=== PATIENT | female | born 1990 | race Caucasian/White ===

== ENCOUNTER 2018-01-31 01:33 | Emergency (ER) | payer OTHER ==
[2018-01-31 01:55] VITALS: BP 136/85; PULSE 75; TEMP 98.7; BMI 26.6
--- NOTE | 2018-01-31 01:57 | PDOC ---
History of Present Illness <Kinza Rudolph - Last Filed: 01/31/18 04:20> - General History Source: Patient - History of Present Illness Initial Comments: 01/31/18 02:44 Patient is a 27 year old female with a PMH of Asthma who presents c/o vaginal spotting. Patient states she has had minimal vaginal spotting over the last 2 days with some associated abdominal cramping and aching pain in her breasts. Patient states she took home tests x3 yesterday that were positive. Patient denies any fevers/chills but endorses multiple episodes of NBNB emesis. Patient has not been evaluated by an [facility] during this and notes her prior was terminated (elective AB). Patient denies any chest pain, shortness of breath, dysuria/hematuria, recent travel or sick contacts. <Briana Fernando - Last Filed: 01/31/18 04:37> - General Chief Complaint: Pain Stated Complaint: ABDOMINAL PAIN Time Seen by Provider: 01/31/18 01:54 Past History <Kinza Rudolph - Last Filed: 01/31/18 04:20> - Suicide/Smoking/Psychosocial Hx Smoking History: Smoker current status UNK Have you smoked in the past 12 months: No Information on smoking cessation initiated: No Hx Alcohol Use: No Drug/Substance Use Hx: No <Briana Fernando - Last Filed: 01/31/18 04:37> - Past Medical History Allergies/Adverse Reactions: Allergies Allergy/AdvReac Type Severity Reaction Status Date / Time No Known Allergies Allergy Verified 01/31/18 01:55 Home Medications: Ambulatory Orders Albuterol Sulfate Inhaler - [Ventolin Hfa Inhaler -] 1 puff IH PRN 01/31/18 Review of Systems - Review of Systems Constitutional: No: Chills, Fever Respiratory: No: Cough, Shortness of Breath Cardiac (ROS): No: Chest Pain, Lightheadedness, Palpitations, Syncope ABD/GI: Yes: Vomiting, Abdominal cramping. No: Constipated, Diarrhea : No: Burning, Dysuria <Briana Fernando - Last Filed: 01/31/18 04:37> *Physical Exam - Vital Signs Last Vital Signs Temp Pulse Resp BP Pulse Ox 98.7 F 75 18 136/85 100 01/31/18 01:53 01/31/18 01:53 01/31/18 01:53 01/31/18 01:53 01/31/18 01:53 <Kinza Rudolph - Last Filed: 01/31/18 04:20> - Vital Signs Last Vital Signs Temp Pulse Resp BP Pulse Ox 98.7 F 75 18 136/85 100 01/31/18 01:53 01/31/18 01:53 01/31/18 01:53 01/31/18 01:53 01/31/18 01:53 - Physical Exam General Appearance: Yes: Nourished, Appropriately Dressed Neck: positive: Trachea midline, Supple Respiratory/Chest: positive: Lungs Clear Cardiovascular: positive: S1, S2. negative: Edema, JVD Female Pelvic Exam: positive: cervical os closed, discharge Gastrointestinal/Abdominal: positive: Normal Bowel Sounds, Soft Musculoskeletal: negative: CVA Tenderness (R), CVA Tenderness (L) Extremity: positive: Normal Capillary Refill, Normal Inspection Integumentary: positive: Normal Color, Dry, Warm <Briana Fernando - Last Filed: 01/31/18 04:37> ED Treatment Course - LABORATORY CBC & Chemistry Diagram: 01/31/18 02:29 01/31/18 02:29 - ADDITIONAL ORDERS Additional order review: Laboratory Results 01/31/18 01/31/18 01/31/18 02:29 02:29 02:29 Sodium 139 Potassium 3.9 Chloride 108 H Carbon Dioxide 22 Anion Gap 9 BUN 14 Creatinine 0.7 Creat Clearance w eGFR > 60 Random Glucose 97 Calcium 8.3 L Total Bilirubin 0.2 AST 17 ALT 16 Alkaline Phosphatase 64 Total Protein 7.8 Albumin 3.9 Beta HCG, Quant 89.0 Urine Color Yellow Urine Appearance Slcloudy Urine pH 5.0 [address] [facility] 1.039 H Urine Protein 1+ H Urine Glucose (UA) Negative Urine Ketones Negative Urine Blood Negative Urine Nitrite Negative Urine Bilirubin Negative Urine Urobilinogen 2.0 H Ur Leukocyte Esterase Negative Urine WBC (Auto) 1 Urine RBC (Auto) 5 Ur Epithelial Cells Rare Urine Bacteria Rare Urine Mucus Moderate Blood Type A POSITIVE Antibody Screen Negative 01/31/18 02:29 RBC 4.26 MCV 91.4 MCHC 33.7 RDW 13.8 MPV 8.9 Neutrophils % 69.2 Lymphocytes % 21.3 Monocytes % 8.1 Eosinophils % 1.1 Basophils % 0.3 <Kinza Rudolph - Last Filed: 01/31/18 04:20> - LABORATORY CBC & Chemistry Diagram: 01/31/18 02:29 01/31/18 02:29 <Briana Fernando - Last Filed: 01/31/18 04:37> Medical Decision Making - Medical Decision Making 01/31/18 02:47 27 year old female presents s/p home test and SiSx of including abdominal cramping and B/L breast tenderness/fullness. Unremarkable abdominal exam. Pelvic exam shows closed cervical os with physiologic discharge. Will obtain TVUS, CBC, B-HCG, T/S and UA. Reassess. 01/31/18 04:18 B-HCG 89, c/w 0-1 week . TVUS pending. CBC shows no anemia. Urine clean. 01/31/18 04:24 U/S equivocal for ectopic vs. early . Will page [facility]. 01/31/18 04:26 Case d/w Dr. Alfaro ([facility]) patient should have repeat B-HCG in 48 hours. Will discharge patient home with return precautions, referral to [facility] as well as referral to primary care. 01/31/18 04:34 Patient counseled extensively on importance of [facility] evaluation in 48 hours for repeat B-HCG. I discussed the physical exam findings, ancillary test results and final diagnoses with the patient. I answered all of the patient's questions. The patient was satisfied with the care received and felt comfortable with the discharge plan and treatment plan. The patient will return to the Emergency Department with any new, persistent or worsening symptoms. <AbdullahiBriana - Last Filed: 01/31/18 04:37> *DC/Admit/Observation/Transfer - Discharge Dispostion Admit: No <RudolphKinza - Last Filed: 01/31/18 04:20> <Briana Fernando - Last Filed: 01/31/18 04:37> Diagnosis at time of Disposition: Early stage of , Pelvic pain - Discharge Dispostion Disposition: HOME Condition at time of disposition: Stable - Referrals Referrals: ON STAFF,NOT [Primary Care Provider] - Tay Alfaro MD [Staff Physician] - Javier Whipple MD [Staff Physician] - - Patient Instructions Printed Discharge Instructions: DI for Ectopic Additional Instructions: You must follow up with Dr. Alfaro, a doctor, in 48 hours to determine if any possible is safe to carry to term. It is very important that you see an sdet in 48 hours for a full evaluation as a could be outside your uterus and this is a medical emergency. We have also provided a referral to Dr. Sarabjit Herrera to establish primary care. Return to the Emergency Department for any new/worsening/concerning symptoms. - Post Discharge Activity
[2018-01-31 02:39] LABS: BASO % 0.3 % (0-2.0); EOS % 1.1 % (0-4.5); HEMOGLOBIN 13.2 GM/dL (10.7-15.3); LYMPH % 21.3 % (8-40); MCH 30.8 pg (25.7-33.7); MCHC 33.7 g/dl (32.0-36.0); MEAN CELL VOLUME 91.4 fl (80-96); MEAN PLT VOLUME 8.9 fl (7.5-11.1); MONO % 8.1 % (3.8-10.2); NEUT % 69.2 % (42.8-82.8); PLATELET COUNT 234 K/MM3 (134-434); RBC 4.26 M/mm3 (3.60-5.2); RDW 13.8 % (11.6-15.6); URINE APPEARANCE SLCLOUDY; URINE BILIRUBIN NEGATIVE (<2.0 mg/dL); URINE BLOOD NEGATIVE (NEGATIVE); URINE COLOR YELLOW; URINE GLUCOSE (UA) NEGATIVE (NEGATIVE); URINE KETONE NEGATIVE (NEGATIVE); URINE LEUK ESTERASE NEGATIVE (NEGATIVE); URINE NITRITE NEGATIVE (NEGATIVE); WHITE BLOOD COUNT 12.1 K/mm3 (4.0-10.0)
[2018-01-31 02:42] LABS: URINE PROTEIN 1+ (NEGATIVE)
[2018-01-31 02:43] LABS: EPI CELLS RARE /HPF (FEW); URINE BACTERIA RARE /hpf (NONE SEEN); URINE MUCUS MODERATE
[2018-01-31 03:05] LABS: ALBUMIN 3.9 g/dl (3.4-5.0); ANION GAP 9 (8-16); BILIRUBIN,TOTAL 0.2 mg/dL (0.2-1.0); BLOOD UREA NITROGEN 14 mg/dL (7-18); CALCIUM 8.3 mg/dL (8.5-10.1); CHLORIDE 108 mmol/L (98-107); CO2 22 mmol/L (21-32); CREATININE 0.7 mg/dL (0.55-1.02); GLUCOSE,RANDOM 97 mg/dL (74-106); POTASSIUM 3.9 mmol/L (3.5-5.1); SGOT/AST 17 U/L (15-37); SGPT/ALT 16 U/L (12-78); SODIUM 139 mmol/L (136-145); TOT PROT 7.8 g/dl (6.4-8.2)
[2018-01-31 03:07] LABS: ALK PHOS 64 U/L (45-117)
--- NOTE | 2018-01-31 04:14 | PDOC ---
Attending Attestation - Resident Resident Name: Briana Fernando - ED Attending Attestation I have performed the following: I have examined & evaluated the patient, The case was reviewed & discussed with the resident, I agree w/resident's findings & plan - HPI HPI: 01/31/18 04:47 Pt comes with lower abd pain in . Home preg test positive. Pt has no vag bleeding. Pt has A+ blood. - Physicial Exam PE: 01/31/18 04:50 Agree with resident exam - Medical Decision Making 01/31/18 04:50 BHCG 89; early preg vs ectopic. Pt will follow with [facility] in 2 days for repeat hcg. We spoke to [facility] Dominic, and he agrees with this plan. 01/31/18 04:52 Patient Name: LUMA CHAUDHARY THIS IS A PRELIMINARY REPORT FROM [facility] DATE OF SERVICE: 2018-01-31 01:48:27 IMAGES: 95 EXAM: Ultrasound , first trimester and pelvic duplex HISTORY: Rule out ectopic . COMPARISON: None. FINDINGS: Ultrasound :Uterus is anteverted and measures 8.0centimeters in length. The endometrium is 11millimeters in thickness and there is no IUP which could indicate early normal , ectopic or miscarriage. The right ovary measures 5.2centimeters in length, contains a 3.7 cm cyst, possibly a corpus luteum and demonstrates normal flow. Left ovary measures 3.3centimeters in length appears normal demonstrates normal flow. There is minimal significant free fluid. Pelvic duplex: There is normal arterial and venous flow in both ovaries. IMPRESSION: No IUP which could indicate early normal , miscarriage or ectopic . 3.7 cm right ovarian cyst, possible corpus luteum with minimal free fluid and no torsion. Recommend followup sonography and correlation with hCG levels. THIS DOCUMENT HAS BEEN ELECTRONICALLY SIGNED
== END 2018-01-31 05:00 | disposition home or self-care (01) ==
LOC: JER 01:33 → SUPCPDRO 01:33 → JER 05:00
DX: O26.891 Other specified pregnancy related conditions, first trimester (principal); Z3A.00 Weeks of gestation of pregnancy not specified; R10.2 Pelvic and perineal pain
CPT/HCPCS: 36415; 76817-TC; 80053; 81003; 81015; 84702; 85025; 86850; 86900; 86901; 99281-25

== ENCOUNTER 2019-09-08 18:47 | Emergency (ER) | payer OTHER ==
[2019-09-08 18:54] VITALS: BP 135/90; PULSE 88; TEMP 98; BMI 30.9
[2019-09-08] MEDS ORDERED: IBUPROFEN 400 MG TABLET (FP) PO ONE ×2 (20:21→20:32)
--- NOTE | 2019-09-08 21:26 | PDOC ---
History of Present Illness - General Chief Complaint: Chest Pain Stated Complaint: CHEST PAIN Time Seen by Provider: 09/08/19 20:14 History Source: Patient Exam Limitations: No Limitations Past History - Past Medical History Allergies/Adverse Reactions: Allergies Allergy/AdvReac Type Severity Reaction Status Date / Time No Known Allergies Allergy Verified 09/08/19 18:55 Home Medications: Ambulatory Orders NK [No Known Home Medication] 09/08/19 COPD: No DVT: No - Psycho Social/Smoking Cessation Hx Smoking History: Never smoked Have you smoked in the past 12 months: No Hx Alcohol Use: No Drug/Substance Use Hx: No *Physical Exam - Vital Signs Last Vital Signs Temp Pulse Resp BP Pulse Ox 98 F 88 18 135/90 100 09/08/19 18:52 09/08/19 18:52 09/08/19 18:52 09/08/19 18:52 09/08/19 18:52 - Physical Exam General Appearance: No: Apparent Distress Respiratory/Chest: positive: Lungs Clear, Normal Breath Sounds. negative: Chest Tender, Respiratory Distress Cardiovascular: positive: Regular Rhythm, Regular Rate, S1, S2. negative: Murmur Gastrointestinal/Abdominal: positive: Normal Bowel Sounds, Soft. negative: Tender, Distended, Guarding, Rebound Extremity: negative: Pedal Edema, Swelling, Calf Tenderness Neurologic: positive: Alert ED Treatment Course - RADIOLOGY Radiology Studies Ordered: Category Date Time Status CHEST PA & LAT [RAD] Stat Radiology 09/08/19 20:19 Taken - Medications Given in the ED: ED Medications Discontinued Medications Generic Name Dose Route Start Last Admin Trade Name Freq PRN Reason Stop Dose Admin Ibuprofen 800 mg 09/08/19 20:21 09/08/19 20:35 Motrin - PO 09/08/19 20:22 800 mg ONCE ONE Administration Medical Decision Making - Medical Decision Making 29 y/o F with hx of asthma presents with L sided sharp CP and B/L shoulder pain from today at 5:30 PM while she was at [place]. Pain is worse with movement of body and inspiration. Denies having this pain before. Denies fever, cough, URI sxs, abd pain, n/v, recent travel/surgeries, use of OCPs. Denies drug use. Was light smoker; quit 7 years ago (smoked 2 years, around 3 cigs/day). Denies FH of CAD or AL EKG: NSR at 84 bpm, no ST-T changes CXR negative PERC negative; no concern for PE Patient was given Motrin and felt better Likely costochondritis 09/08/19 21:23 Discharge - Discharge Information Problems reviewed: Yes Clinical Impression/Diagnosis: Costochondritis Condition: Stable Disposition: HOME - Admission No - Additional Discharge Information Prescription Drug Monitoring Program (I-STOP) results: I-STOP not reviewed - Follow up/Referral - Patient Discharge Instructions Patient Printed Discharge Instructions: DI for Costochondritis Additional Instructions: Thank you for choosing [facility]. It was a pleasure taking care of you. You may take Motrin 600 mg every 6 hours by mouth as needed for mild to moderate pain. Take Motrin with food. Warm compresses may also help Return to the Emergency Department if your symptoms worsen or persist, you have fever, shortness of breath, chest pain, severe abdominal pain, vomiting or other concerning symptoms. - Post Discharge Activity Work/Back to School Note: Back to Work
--- NOTE | 2019-09-11 11:36 | EKG ---
Test Reason : Blood Pressure : / mmHG Vent. Rate : 084 BPM Atrial Rate : 084 BPM P-R Int : 172 ms QRS Dur : 078 ms QT Int : 384 ms P-R-T Axes : 059 077 060 degrees QTc Int : 453 ms NORMAL SINUS RHYTHM POSSIBLE LEFT ATRIAL ENLARGEMENT BORDERLINE ECG WHEN COMPARED WITH ECG OF 13-MAY-2018 14:16, NO SIGNIFICANT CHANGE WAS FOUND Confirmed by TED BRUNO MD ([id number]) on 09/11/2019 11:36:07 AM Referred By: Confirmed By:TED BRUNO MD
== END 2019-09-08 21:47 | disposition home or self-care (01) ==
LOC: JER 18:47
DX: M94.0 Chondrocostal junction syndrome [Tietze] (principal)
CPT/HCPCS: 71046-TC-FY; 93005; 93010; 99283-25

== ENCOUNTER 2021-08-28 15:17 | Emergency (ER) | payer OTHER ==
[2021-08-28 15:41] VITALS: BP 105/73; PULSE 84; TEMP 98.6; BMI 31.9
[2021-08-28] MEDS ORDERED: ACETAMINOPHEN 500 MG TABLET (FP) PO ONE (16:36)
[2021-08-28] MEDS ORDERED: ACETAMINOPHEN 500 MG TABLET (FP) ONE (16:38)
== END 2021-08-28 17:08 | disposition home or self-care (01) ==
LOC: JERFT 15:17
DX: O99.511 Diseases of the respiratory system complicating pregnancy, first trimester (principal); J06.9 Acute upper respiratory infection, unspecified; Z3A.01 Less than 8 weeks gestation of pregnancy; Z11.52 Encounter for screening for COVID-19
CPT/HCPCS: 87804; 87807; 99283-25; C9803; U0003; U0005

== ENCOUNTER 2021-09-27 00:18 | Emergency (ER) | payer OTHER ==
[2021-09-27 00:58] VITALS: BMI 29.0
[2021-09-27] MEDS ORDERED: ONDANSETRON 4 MG/2 ML VIAL IVPUSH ONE (01:44)
[2021-09-27] MEDS ORDERED: ONDANSETRON 4 MG/2 ML VIAL ONE (01:49)
[2021-09-27] MEDS ORDERED: LACTATED RINGERS SOLUTION 1000 ML INFUS.BAG IV ONE (01:50)
[2021-09-27 03:37] LABS: BASO % 0.2 % (0-2.0); EOS % 0.3 % (0-4.5); HEMATOCRIT 39.1 % (32.4-45.2); HEMOGLOBIN 13.4 GM/dL (10.7-15.3); LYMPH % 12.6 % (8-40); MCH 30.3 pg (25.7-33.7); MCHC 34.2 g/dl (32.0-36.0); MEAN CELL VOLUME 88.8 fl (80-96); MONO % 5.9 % (3.8-10.2); PLATELET COUNT 229 10^3/uL (134-434); RBC 4.41 M/mm3 (3.60-5.2); RDW 13.3 % (11.6-15.6); WHITE BLOOD COUNT 11.3 K/mm3 (4.0-10.0)
[2021-09-27 04:01] LABS: ALBUMIN 3.6 g/dl (3.4-5.0)
[2021-09-27 04:04] LABS: CREATININE 0.5 mg/dL (0.55-1.3)
[2021-09-27 04:06] LABS: BILIRUBIN,TOTAL 0.5 mg/dL (0.2-1); TOT PROT 7.8 g/dl (6.4-8.2)
[2021-09-27 06:44] VITALS: BP 94/52; PULSE 51; TEMP 98.6
[2021-09-27 07:14] LABS: EPI CELLS >36 /uL (0-25.1); HYALINE CASTS 9 /uL (0-3.1); PH,URINE 5.5 (5.0-8.0); URINE APPEARANCE CLOUDY; URINE BACTERIA 688 /uL (0-1359); URINE BILIRUBIN 1+ (NEGATIVE); URINE COLOR DK YELLOW; URINE GLUCOSE (UA) NEGATIVE (NEGATIVE); URINE KETONE 4+ (NEGATIVE); URINE LEUK ESTERASE 2+ (NEGATIVE); URINE NITRITE NEGATIVE (NEGATIVE); URINE PROTEIN TRACE (NEGATIVE); URINE WBC 280 /uL (0-25.8)
[2021-09-27] MEDS ORDERED: NITROFURANTOIN MACROCRYSTAL 50 MG CAPSULE (FP) PO ONE (08:00)
[2021-09-27] MEDS ORDERED: NITROFURANTOIN MACROCRYSTAL 50 MG CAPSULE (FP) ONE (08:08)
== END 2021-09-27 08:18 | disposition home or self-care (01) ==
LOC: JER 00:18 → JERBED 07:20 → UNDOADMOB 07:20 → JER 08:18
PROC: 3E033GC Introduction of Other Therapeutic Substance into Peripheral Vein, Percutaneous Approach (ICD-10-PCS; principal; 2021-09-27)
DX: O21.9 Vomiting of pregnancy, unspecified (principal); Z3A.11 11 weeks gestation of pregnancy
CPT/HCPCS: 36415; 76801-TC; 80053; 81003; 83690; 84702; 85025; 87086; 93005; 93010; 99284-25

== ENCOUNTER 2021-11-09 02:15 | Emergency (ER) | payer OTHER ==
[2021-11-09 02:20] VITALS: BMI 29.1
[2021-11-09] MEDS ORDERED: morphine CARPU-JECT 2 MG/1 ML DISP.SYRIN IVPUSH ONE (03:14)
[2021-11-09] MEDS ORDERED: AMOXICILLIN 500 MG CAPSULE (FP) PO ONE (03:45)
[2021-11-09] MEDS ORDERED: LACTATED RINGERS SOLUTION 1000 ML INFUS.BAG IV ONE (03:45)
[2021-11-09] MEDS ORDERED: ACETAMINOPHEN 1000 MG/100 ML BAG IVPB ONE (03:45)
[2021-11-09] MEDS ORDERED: AMOXICILLIN 500 MG CAPSULE (FP) ONE (03:48)
[2021-11-09] MEDS ORDERED: ACETAMINOPHEN INJECTION 100 ML IVPB ONE (03:49)
[2021-11-09] MEDS ORDERED: ONDANSETRON 4 MG/2 ML VIAL IVPUSH ONE (03:53)
[2021-11-09 06:06] VITALS: BP 113/80; PULSE 93; TEMP 98.6
== END 2021-11-09 06:23 | disposition home or self-care (01) ==
LOC: JER 02:15
PROC: 3E033GC Introduction of Other Therapeutic Substance into Peripheral Vein, Percutaneous Approach (ICD-10-PCS; principal; 2021-11-09)
DX: O26.892 Other specified pregnancy related conditions, second trimester (principal); K08.89 Other specified disorders of teeth and supporting structures; Z3A.18 18 weeks gestation of pregnancy
CPT/HCPCS: 96374; 96375; 99284-25; J0131

== ENCOUNTER 2022-04-01 03:33 | Inpatient (IN) | payer OTHER ==
[2022-04-01] MEDS ORDERED: AMPICILLIN SODIUM 2 GM VIAL ONE (04:33)
[2022-04-01 04:43] LABS: BASO % 0.6 % (0-2.0); EOS % 0.7 % (0-4.5); HEMATOCRIT 37.3 % (32.4-45.2); HEMOGLOBIN 12.6 GM/dL (10.7-15.3); LYMPH % 18.1 % (8-40); MCH 31.4 pg (25.7-33.7); MCHC 33.6 g/dl (32.0-36.0); MEAN CELL VOLUME 93.3 fl (80-96); MEAN PLT VOLUME 9.5 fl (7.5-11.1); MONO % 7.8 % (3.8-10.2); NEUT % 72.8 % (42.8-82.8); PLATELET COUNT 184 10^3/uL (134-434); RDW 14.2 % (11.6-15.6); WHITE BLOOD COUNT 14.7 K/mm3 (4.0-10.0)
[2022-04-01 05:00] LABS: INR 0.97 (0.83-1.09); PROTHROMBIN TIME (PATIENT) 11.2 SEC (9.7-13.0)
[2022-04-01 05:03] LABS: ACTIVATED PTT 25.6 SECONDS (25.2-36.5)
[2022-04-01] MEDS ORDERED: PROMETHAZINE HCL 25 MG/1 ML VIAL IVPUSH ONE (05:04)
[2022-04-01] MEDS ORDERED: BUTORPHANOL TARTRATE 1 MG/ML VIAL IVPB ONE (05:04)
[2022-04-01] MEDS ORDERED: AMPICILLIN - 2 GM in SODIUM CHLORIDE 100 ML IVPB ONE (05:06)
[2022-04-01 05:11] LABS: BLOOD UREA NITROGEN 7.4 mg/dL (7-18); CALCIUM 8.8 mg/dL (8.5-10.1)
[2022-04-01 05:14] LABS: CREATININE 0.5 mg/dL (0.55-1.3)
[2022-04-01] MEDS ORDERED: ELECTROLYTE-148 SOLN 1,000 ML IV SCH (05:15)
[2022-04-01 05:36] VITALS: BMI 33.3
[2022-04-01 05:59] LABS: HIV INTERPRETATION NEGATIVE (NEGATIVE)
[2022-04-01] MEDS ORDERED: PROMETHAZINE HCL 25 MG/1 ML VIAL ONE (06:02)
[2022-04-01] MEDS ORDERED: BUTORPHANOL TARTRATE 2 MG/ML VIAL ONE (06:02)
[2022-04-01] MEDS ORDERED: FENTANYL/BUPIVACAINE/NS/PF - PCEA - 50 ML DISP.SYRIN EP ONE (06:14)
[2022-04-01] MEDS ORDERED: NALOXONE HCL 0.4 MG/ML VIAL IVPUSH PRN (06:27)
[2022-04-01] MEDS ORDERED: BUPIVACAINE HCL/PF 0.25% (2.5MG/ML) 10 ML VIAL ONE (06:28)
[2022-04-01] MEDS: FENTANYL/BUPIVACAINE/NS/PF - PCEA - 50 ML DISP.SYRIN EP SCH (06:45)
[2022-04-01] MEDS ORDERED: LIDOCAINE HCL 1% PRESERVATIVE FREE - 30ML VIAL ONE (07:19)
[2022-04-01] MEDS: AMPICILLIN - 1 GM in SODIUM CHLORIDE 100 ML IVPB SCH ×4 (09:10→23:01)
[2022-04-01] MEDS ORDERED: AMPICILLIN SODIUM 1 GM VIAL ONE (09:21)
[2022-04-01] MEDS ORDERED: OXYTOCIN 20 UNITS in 0.9% NS 20 UNIT/1,000 ML INFUS.BAG IV ONE ×2 (09:30→12:28)
[2022-04-01] MEDS ORDERED: BISACODYL 10 MG SUPP.RECT RC PRN (10:15)
[2022-04-01] MEDS ORDERED: WITCH HAZEL 50% (TUCKS) 40 PAD/JAR PAD TP PRN (10:15)
[2022-04-01] MEDS ORDERED: oxyCODONE HCL 5 MG TABLET PO PRN (10:15)
[2022-04-01] MEDS ORDERED: ACETAMINOPHEN 325 MG TABLET (FP) PO PRN (10:15)
[2022-04-01] MEDS ORDERED: BENZOCAINE 20% 57 GM BOTTLE TP PRN (10:15)
[2022-04-01] MEDS ORDERED: OXYTOCIN 20 UNITS in 0.9% NS 20 UNIT/1,000 ML INFUS.BAG IV SCH (10:15)
[2022-04-01] MEDS ORDERED: METHYLERGONOVINE MALEATE 0.2 MG/1 ML AMP IM PRN (10:15)
[2022-04-01] MEDS ORDERED: BENZOCAINE 28 GM HEMORRHOIDAL OINTMENT TP PRN (10:15)
[2022-04-01 10:51] LABS: CORD BASE EXCESS -8.4 mmol/L (0-2); CORD PCO2 66.4 mmHg (30-78); CORD pH 7.138 (7.14-7.44)
[2022-04-01 10:54] LABS: CORD BASE EXCESS -8.1 mmol/L (0-2); CORD HCO3 18.3 mmHg (20-29); CORD PCO2 40.5 mmHg (30-78); CORD pH 7.273 (7.14-7.44)
[2022-04-01] MEDS: IBUPROFEN 600 MG TABLET (FP) PO PRN ×2 (13:25→20:41)
[2022-04-01] MEDS: FERROUS SO4 325 MG TABLET (FP) PO SCH (17:08)
[2022-04-02] MEDS: IBUPROFEN 600 MG TABLET (FP) PO PRN (05:09)
[2022-04-02] MEDS: FENTANYL/BUPIVACAINE/NS/PF - PCEA - 50 ML DISP.SYRIN EP SCH (07:37)
[2022-04-02 09:02] LABS: BASO % 0.2 % (0-2.0); EOS % 1.1 % (0-4.5); HEMATOCRIT 31.8 % (32.4-45.2); HEMOGLOBIN 10.9 GM/dL (10.7-15.3); LYMPH % 14.2 % (8-40); MCH 32.1 pg (25.7-33.7); MCHC 34.2 g/dl (32.0-36.0); MEAN CELL VOLUME 93.8 fl (80-96); MEAN PLT VOLUME 9.7 fl (7.5-11.1); MONO % 5.7 % (3.8-10.2); NEUT % 78.8 % (42.8-82.8); PLATELET COUNT 157 10^3/uL (134-434); RBC 3.39 M/mm3 (3.60-5.2); RDW 14.7 % (11.6-15.6); WHITE BLOOD COUNT 13.1 K/mm3 (4.0-10.0)
[2022-04-02] MEDS: FERROUS SO4 325 MG TABLET (FP) PO SCH (09:25)
[2022-04-02 09:55] VITALS: BP 105/75; PULSE 86; TEMP 98.9
[2022-04-02] MEDS ORDERED: PRENATAL VITAMINS W/ FOLIC ACID TABLET (FP) PO SCH (10:00)
[2022-04-02] MEDS ORDERED: SENNOSIDES/DOCUSATE COMBO (SENNA PLUS) TABLET (UD) PO PRN (22:00)
[2022-04-04 14:07] LABS: HLA CLASS 1 ANTIBODY Negative (Negative)
== END 2022-04-02 13:25 | disposition home or self-care (01) | DRG 560 ==
LOC: JDEL 03:33 → JLDR 04:11 → J3W 13:00
PROVIDERS: ADMIT Obstetrics & Gynecology; ATTEND Obstetrics & Gynecology
PROC: 10E0XZZ Delivery of Products of Conception, External Approach (ICD-10-PCS; principal; 2022-04-01)
PROC: 10907ZC Drainage of Amniotic Fluid, Therapeutic from Products of Conception, Via Natural or Artificial Opening (ICD-10-PCS; 2022-04-01)
DX: O77.0 Labor and delivery complicated by meconium in amniotic fluid (principal); O99.824 Streptococcus B carrier state complicating childbirth; B95.1 Streptococcus, group B, as the cause of diseases classified elsewhere; O99.214 Obesity complicating childbirth; E66.9 Obesity, unspecified; Z3A.37 37 weeks gestation of pregnancy; Z37.0 Single live birth
CPT/HCPCS: 36415; 36600; 59409; 80048; 82803; 85025; 85610; 85730; 86022; 86780; 86850; 86900; 86901; 87389; C9803-CS; U0003; U0005

== ENCOUNTER 2022-06-05 04:28 | Day surgery (SDC) | payer OTHER ==
[2022-05-29 13:15] VITALS: BMI 31.4
[2022-06-05] MEDS ORDERED: BUPIVACAINE HCL/PF 0.25% (2.5MG/ML) 10 ML VIAL ONE (14:49)
[2022-06-05] MEDS ORDERED: SUCCINYLCHOLINE CHLORIDE 200 MG/10 ML SYRINGE ONE (14:55)
[2022-06-05] MEDS ORDERED: PROPOFOL 20 ML ONE (14:55)
[2022-06-05] MEDS ORDERED: ROCURONIUM BROMIDE 50 MG/5 ML SYRINGE ONE (14:55)
[2022-06-05] MEDS ORDERED: LIDOCAINE HCL 2% 100 MG/5 ML DISP.SYRIN ONE (14:55)
[2022-06-05] MEDS ORDERED: MIDAZOLAM HCL 2 MG/2 ML SINGLE DOSE VIAL ONE (14:55)
[2022-06-05] MEDS ORDERED: DEXAMETHASONE SOD PHOSPHATE 4 MG/1 ML VIAL ONE ×2 (14:55→15:29)
[2022-06-05] MEDS ORDERED: KETOROLAC TROMETHAMINE 30 MG/1 ML VIAL ONE ×2 (14:55→15:57)
[2022-06-05] MEDS ORDERED: BUPIVACAINE HCL/PF 0.25% (2.5MG/ML) 10 ML VIAL IJ ONE (15:39)
[2022-06-05] MEDS ORDERED: NEOSTIGMINE METHYLSULFATE 0.5 MG/ML - 10 ML MDV ONE (16:01)
[2022-06-05] MEDS ORDERED: GLYCOPYRROLATE 0.2 MG/1 ML VIAL ONE (16:01)
[2022-06-05] MEDS ORDERED: oxyCODONE HCL 5 MG TABLET PO PRN ×2 (16:17)
[2022-06-05] MEDS ORDERED: ONDANSETRON 4 MG/2 ML VIAL IVPUSH PRN (16:17)
[2022-06-05] MEDS ORDERED: PROMETHAZINE HCL 25 MG/1 ML VIAL IVPUSH PRN (16:17)
[2022-06-05] MEDS ORDERED: LACTATED RINGERS SOLUTION 1,000 ML IV SCH (16:30)
[2022-06-05] MEDS ORDERED: ONDANSETRON 4 MG/2 ML VIAL ONE (16:47)
[2022-06-05 18:59] VITALS: BP 116/80; PULSE 70; RESP 18; TEMP 98.5
== END 2022-06-05 19:10 | disposition home or self-care (01) ==
LOC: JASU-SURG 04:28
PROVIDERS: ATTEND Obstetrics & Gynecology
PROC: 0UT74ZZ Resection of Bilateral Fallopian Tubes, Percutaneous Endoscopic Approach (ICD-10-PCS; principal; 2022-06-05 13:30)
DX: Z30.2 Encounter for sterilization (principal)
CPT/HCPCS: 81025; 88305-TC; 94760